=== PATIENT | male | born 1940 | race Caucasian/White ===

== ENCOUNTER 2017-12-11 11:58 | Emergency (ER) | payer OTHER ==
[~2017-12-11] VITALS: Ht 170.2 cm; Wt 72.6 kg
[2017-12-11] MEDS ORDERED: TIROSINT112 MCG PO (12:15)
[2017-12-11] MEDS ORDERED: AMLODIPINE BESY10 MG PO (12:15)
[2017-12-11] MEDS ORDERED: COREG25 MG PO (12:15)
[2017-12-11] MEDS ORDERED: FLOMAX0.4 MG PO (12:16)
[2017-12-11] MEDS ORDERED: HYDROCHLOROTHIA25 M2 PO (12:16)
[2017-12-11] MEDS ORDERED: LIPITOR10 MG PO (12:17)
[2017-12-11] MEDS ORDERED: TRIAMTERENE-HC1 EAC2 PO (12:17)
[2017-12-11] MEDS ORDERED: METHOTREXATE 22.5 MG PO (12:18)
[2017-12-11 13:31] VITALS: BP 135/62
== END 2017-12-11 13:32 | disposition home or self-care (01) ==
LOC: M.ERS 11:58
DX: S01.81XA Laceration without foreign body of other part of head, initial encounter (principal); I10 Essential (primary) hypertension; Z86.73 Personal history of transient ischemic attack (TIA), and cerebral infarction without residual deficits; W01.198A Fall on same level from slipping, tripping and stumbling with subsequent striking against other object, initial encounter; Y93.89 Activity, other specified; Y92.89 Other specified places as the place of occurrence of the external cause; Y99.8 Other external cause status